=== PATIENT | female | born 1925 | race Caucasian/White ===

== ENCOUNTER 2016-10-23 16:08 | Outpatient (CLI) | payer OTHER ==
[2016-02-14 17:43] VITALS: BP 109/52
== END 2016-10-23 16:10 ==
LOC: LABRHC 16:08
PROVIDERS: ATTEND Family Medicine
DX: N39.0 Urinary tract infection, site not specified (principal)
CPT/HCPCS: 87086; 87186

== ENCOUNTER 2016-12-04 10:16 | Outpatient (CLI) | payer OTHER ==
[2016-02-14 17:43] VITALS: BP 109/52
[2016-12-04 10:47] LABS: BASOPHILS % 0.4 (0.0-1.5); EOSINOPHILS % 2.4 % (0.0-6.8); LYMPHOCYTES # 1.7 # k/uL (0.6-4.0); MEAN CORPUSCULAR HEMOGLOBIN 30.4 pg (28.0-34.0); MONOCYTES # 0.2 # k/uL (0.0-0.9); MONOCYTES % 2.5 % (0.0-11.0); NEUTROPHILS # 3.8 # k/uL (1.4-7.7)
--- NOTE | 2016-12-04 13:59 | Diagnostic Imaging Report ---
JELENA LARIOS [facility] [address] [facility] [address] [id number] Report Submission Date: Dec 04, 2016 1:47:55 PM CDT Patient Study Name: SCHUYLER PATIÑO Date: Dec 04, 2016 10:28:33 AM CDT Modality Type: CR Gender: F Description: CHEST : [birth year] Institution: [facility] Physician: JELENA LARIOS Chest two views HISTORY: Cough and wheezing FINDINGS: Percutaneous aortic valve replacement is observed. The lungs are hyperinflated. Atherosclerotic calcifications are observed. Heart size is normal. There is no confluent infiltrate or pleural effusion. Calcified granulomas are noted. IMPRESSION: Chronic obstructive pulmonary disease, aortic valve replacement, atherosclerosis , and old granulomatous disease. Electronically signed on Dec 04, 2016 1:47:55 PM CDT by: Israel HERNANDEZ
== END 2016-12-04 10:17 ==
LOC: LAB 10:16
PROVIDERS: ATTEND Family Medicine
DX: J18.9 Pneumonia, unspecified organism (principal); I50.43 Acute on chronic combined systolic (congestive) and diastolic (congestive) heart failure
CPT/HCPCS: 36415; 71020; 83880; 85025

== ENCOUNTER 2017-04-01 11:43 | Outpatient (CLI) | payer OTHER ==
[2016-02-14 17:43] VITALS: BP 109/52
== END 2017-04-01 12:00 ==
LOC: LAB 11:43
PROVIDERS: ATTEND Family Medicine
DX: E11.9 Type 2 diabetes mellitus without complications (principal)
CPT/HCPCS: 36415; 83036